=== PATIENT | female | born 1945 | race Hispanic/Latino ===

== ENCOUNTER 2017-12-10 06:31 | Day surgery (SDC) | payer MEDICARE ==
[2017-11-17 11:19] VITALS: BMI 19.7
[2017-12-10] MEDS ORDERED: Propofol 10 mg/ml Inj (20 ML) ONE (08:04)
[2017-12-10] MEDS ORDERED: Sodium Chloride 0.9% 1,000 ML IV SCH (08:45)
[2017-12-10 08:55] VITALS: PULSE 58
[2017-12-10 09:30] VITALS: BP 137/62; RESP 16; TEMP 97.7; O2SAT 100
== END 2017-12-10 10:20 | disposition home or self-care (01) ==
LOC: ENDO 06:31
PROVIDERS: ATTEND Specialist
DX: K57.30 Diverticulosis of large intestine without perforation or abscess without bleeding (principal); K64.8 Other hemorrhoids; Z86.010 Personal history of colon polyps
CPT/HCPCS: 45378; J2001; J2704; J7030; J7040